=== PATIENT | female | born 1995 | race Two or more races ===

== ENCOUNTER 2021-07-28 10:17 | Emergency (ER) | payer MEDICAID, OTHER ==
[~2021-07-28] VITALS: Ht 154.9 cm; Wt 97.5 kg
[2021-07-28 10:17] VITALS: BP 124/76
== END 2021-07-28 13:13 | disposition home or self-care (01) ==
LOC: ER 10:17
DX: S51.812D Laceration without foreign body of left forearm, subsequent encounter (principal); J45.909 Unspecified asthma, uncomplicated; Z88.2 Allergy status to sulfonamides; X58.XXXD Exposure to other specified factors, subsequent encounter

== ENCOUNTER 2022-10-16 06:25 | Emergency (ER) | payer MEDICAID ==
[~2022-10-16] VITALS: Ht 157.5 cm; Wt 104.5 kg
[2022-10-16] MEDS ORDERED: EPINEPHrine HCL 1 MG/1 ML AMP SC ONE (06:45)
[2022-10-16] MEDS ORDERED: diphenhdrAMINE HCL 50 MG/1 ML VL IV ONE (06:45)
[2022-10-16] MEDS ORDERED: DexAMETHasone SOD PHOS 10MG/1ML VIAL INJ IV ONE (06:45)
[2022-10-16] MEDS ORDERED: ONDANSETRON HCL 4 MG/2 ML VIAL ONE (06:54)
[2022-10-16] MEDS ORDERED: ONDANSETRON HCL 4 MG/2 ML VIAL IV ONE (07:00)
[2022-10-16] MEDS ORDERED: PRED20TA2 PO (07:58)
[2022-10-16 08:23] VITALS: BP 121/66
== END 2022-10-16 08:25 | disposition home or self-care (01) ==
LOC: ER 06:25
DX: T78.1XXA Other adverse food reactions, not elsewhere classified, initial encounter (principal); J45.909 Unspecified asthma, uncomplicated; Z88.2 Allergy status to sulfonamides; X58.XXXA Exposure to other specified factors, initial encounter
CPT/HCPCS: 96372; 96374; 96375; 99284; J0171; J1100; J1200; J2405

== ENCOUNTER 2025-01-02 03:27 | Emergency (ER) | payer MEDICAID ==
[~2025-01-02] VITALS: Ht 154.9 cm; Wt 104.3 kg
[~2025-01-02 03:27] MED LIST: PRED20TA2 PO
[2025-01-02] MEDS ORDERED: ACET500T58 PO (04:09)
[2025-01-02] MEDS ORDERED: AMOX875T4 PO (04:09)
--- NOTE | 2025-01-02 04:09 | ED.PDOC ---
Eye-HPI HPI Comments 29-YEAR-OLD FEMALE PRESENTS TO ER WITH COMPLAINTS OF TOOTHACHE X2 DAYS. PATIENT REPORTS SHE HAS BEEN EXPERIENCING LEFT UPPER TOOTHACHE PAIN WITH ASSOCIATED PAIN TO SURROUNDING GUMS X2 DAYS. REPORTS THAT SHE HAS BEEN TAKING TYLENOL FOR HER PAIN WITH SLIGHT RELIEF. SHE RATES HER CURRENT LEFT UPPER TOOTHACHE PAIN AN 8/10 AND STATES SHE HAS NOT SEEN A DENTIST IN "SEVERAL YEARS". DENIES FEVER, FACIAL SWELLING/SKIN CHANGES, HEADACHE, JAW PAIN OR ANY FURTHER SYMPTOMS/COMPLAINTS Chief Complaint: Jaw Pain Time Seen by MD: 03:35 Primary Care Provider: UNKNOWN Reviewed Notes: Nurses Notes, Medications, Allergies Allergies: Uncoded Allergies: SULFA (Allergy, Severe, 07/28/21) Home Meds Active Scripts Amoxicillin & Pot Clavulanate (Amoxicillin/Potassium Cla) 875 Mg Tab, 1 TAB PO BID for 7 Days, #14 TAB 0 Refills Prov:LOU ROBBINS 01/02/25 Acetaminophen (Acetaminophen) 500 Mg Tab, 500 MG PO Q4HPRN, #30 TAB 0 Refills Prov:LOU ROBBINS 01/02/25 Prednisone (Prednisone) 20 Mg Tab, 50 MG PO DAILY for 5 Days, #5 MG Prov:ALVA GORDON MD 10/16/22 Information Source: Patient Mode of Arrival: Ambulatory Past Medical History PAST MEDICAL HISTORY: Anxiety, Asthma, Depression, HTN Past Medical History (Other): PTSD Surgical History (Other): GASTRIC SLEEVE RECONSTRUCTIVE SURGEON History: No Pertinent RECONSTRUCTIVE SURGEON History Family History Family History: Unknown, Family hx of heart reji Social History Smoker: Secondhand Alcohol: Denies ETOH Use Drugs: Marijuana Lives In: Home Constitutional: denies: chills, diaphoresis, fatigue, fever, malaise, sweats, weakness, others EENTM: reports: others ( STATED IN HPI) Respiratory: denies: cough, hemoptysis, orthopnea, SOB at rest, shortness of breath, SOB with excertion, stridor, wheezing, others Cardiovascular: denies: chest pain, dizzy spells, diaphoresis, Dyspnea on exertion, edema, irregular heart beat, left arm pain, lightheadedness, palpitations, PND, syncope, others Gastrointestinal: denies: abdomen distended, abdominal pain, blood streaked bowels, constipated, diarrhea, dysphagia, difficulty swallowing, hematemesis, melena, nausea, poor appetite, poor fluid intake, rectal bleeding, rectal pain, vomiting, others Genitourinary: denies: abnormal vagina bleeding, burning, dyspareunia, dysuria, flank pain, frequency, hematuria, incontinence, pain, , vagina discharge, urgency, others Neurological: denies: dizziness, fainting, headache, left sided numbness, left sided weakness, numbness, paresthesia, pre-existing deficit, right sided numbnes s, right sided weakness, seizure, speech problems, tingling, tremors, weakness, others Musculoskeletal: denies: back pain, gout, joint pain, joint swelling, muscle pain, muscle stiffness, neck pain, others Integumetry: denies: bruises, change in color, change in hair/nails, dryness, laceration, lesions, lumps, rash, wounds, others Allergic/Immunocompromised: denies: Difficulty Healing, Frequent Infections, Hives, Itching, others Hematologic/Lymphatic: denies: anemia, blood clots, easy bleeding, easy bruising, swollen glands, others Endocrine: denies: excessive hunger, excessive sweating, excessive thirst, excessive urination, flushing, intolerance to cold, intolerance to heat, unexplained weight gain, unexplained weight loss, others Psychiatric: denies: anxiety, bipolar disorder, depression, hopeless, panic disorder, schizophrenia, sleepless, suicidal, others Physical Exam General Appearance: No Apparent Distress, Obese HEENT: PERRL/EOMI, Pharynx Normal, TMs Normal, Other (MILD SWELLING/ERYTHEMA NOTED SURROUNDING GUMS OF LEFT UPPER MOLAR TEETH WITHOUT BLEEDING/DRAINAGE. OVERALL VERY POOR DENTAL HYGIENE APPRECIATED. NO FACIAL SWELLING/SKIN CHANGES NOTED) Neck: Full Range of Motion, Non-Tender, Normal Respiratory: Chest Non-Tender, Lungs Clear, No Accessory Muscle Use, No Respiratory Distress, Normal Breath Sounds Cardiovascular: No Murmur, No Gallop, Regular Rate/Rhythm Breast Exam: Deferred Gastrointestinal: NOT DONE Genitalia: Deferred Pelvic: Deferred Rectal: Deferred Extremities: Normal capillary refill, Normal range of motion Neurologic: Alert, area operations director II-XII nml as Tested, No Motor Deficits, Normal Affect, Normal Mood, No Sensory Deficits Cerebellar Function: Normal Reflexes: Normal Skin: Dry, Normal Color, Warm Lymphatic: No Adenopathy Was a procedure done? Was a procedure done?: No Sedation Sedation?: No EENT DIFF Eye: N/A Mouth: Herpes Simplex, Thrush, Other (DENTAL ABSCESS, HARJEET'S ANGINA) X-Ray, Labs, Meds, VS Vital Signs Date Time Temp Pulse Resp B/P (MAP) Pulse Ox O2 Delivery O2 Flow Rate FiO2 01/02/25 03:54 98.2 98 28 145/80 (101) 96 98.2 HURRICANE SPRAY ORDERED, PATIENT EDUCATED ON PROPER USE/DOSAGE CANNABIS CESSATION DISCUSSED AND ADVISED ADVISED TO FOLLOW UP WITH PCP AND DENTIST IN 1-2 DAYS PATIENT VERBALIZED UNDERSTANDING AND AGREEABLE WITH CURRENT PLAN OF CARE ADVISED TO RETURN TO ER IMMEDIATELY IF SYMPTOMS WORSEN Time of 1ST Reevaluation: 03:44 Reevaluation 1ST: N/A Patient Education/Counseling: Diagnosis, Treatment, Prognosis, Need For Follow Up Family Education/Counseling: No Family Present Departure 1 Departure Time of Disposition: 04:02 Impression: Primary Impression: Dental infection Disposition: 01 HOME / SELF CARE / HOMELESS Condition: Stable e-Prescriptions Amoxicillin & Pot Clavulanate (Amoxicillin/Potassium Cla) 875 Mg Tab 1 TAB PO BID for 7 Days, #14 TAB 0 Refills Prov: LOU ROBBINS 01/02/25 Acetaminophen (Acetaminophen) 500 Mg Tab 500 MG PO Q4HPRN, #30 TAB 0 Refills Prov: LOU ROBBINS 01/02/25 Discharged With: Self Critical Care Note Critical Care Time?: No Stability Stability form required: No Heart Score Heart Score: Heart Score Response (Comments) Value History N/A 0 EKG N/A 0 Age N/A 0 Risk Factors N/A 0 Troponin N/A 0 Total 0 LOU ROBBINS Jan 02, 2025 04:09
[2025-01-02] MEDS: BENZOCAINE (DENTAL) 20 % SPRAY 60ML MT ONE (04:12)
[2025-01-02 04:15] VITALS: PULSE 98; RESP 28; O2SAT 96
[2025-01-02 04:20] VITALS: BP 145/80; PULSE 98; RESP 28; TEMP 98.2; O2SAT 96
== END 2025-01-02 04:20 | disposition home or self-care (01) ==
LOC: ER 03:27
DX: K04.7 Periapical abscess without sinus (principal); I10 Essential (primary) hypertension; J45.909 Unspecified asthma, uncomplicated; Z79.52 Long term (current) use of systemic steroids; Z79.899 Other long term (current) drug therapy; Z88.2 Allergy status to sulfonamides

== ENCOUNTER 2025-07-02 18:48 | Emergency (ER) | payer MEDICAID ==
[~2025-07-02] VITALS: Ht 154.9 cm; Wt 100.3 kg
[~2025-07-02 18:48] MED LIST changes: +ACET500T58 PO; +AMOX875T4 PO
[2025-07-02] MEDS: ALBUTEROL SULF 2.5 MG/0.5ML(0.5%) NEB SOLN NEB STA (19:53)
--- NOTE | 2025-07-02 20:03 | DVH ---
CHEST RADIOGRAPH Indication: CP Technique: Single frontal view of the chest was obtained Comparison: None FINDINGS: Lines and Tubes: None Lungs: No focal consolidation. Pleura: No effusion. No pneumothorax. Cardiomediastinal contours: Unremarkable Bones: No acute osseous abnormality. IMPRESSION: No acute cardiopulmonary disease.
[2025-07-02 20:11] VITALS: BP 131/81; PULSE 86; RESP 15; TEMP 99.2; O2SAT 98
[2025-07-02] MEDS: FAMOTIDINE 20 MG TAB PO ONE (20:11)
--- NOTE | 2025-07-02 20:49 | ED.PDOC ---
HPI Allergic reaction HPI Comments 30-year-old female, with a history of peanut allergy, asthma, hypertension, hypothyroidism, and anemia, presents with chief complaint of throat itchiness and swelling. She reports onset of symptoms 15 minutes prior to arrival after eating a food item, that she suspects on having peanuts in it. Patient reports on taking 150 mg Benadryl tablet prior to coming to ED, with no immediate improvement to symptoms. Patient is still in the process of obtaining an EpiPen from her primary care physician states on being told on a possible anaphylactic shock if exposed to peanut allergen. Denial of any shortness of breath, rash, or further associated symptoms. REVIEW OF SYSTEMS: General: No fever, no chills, or fatigue HEENT: Throat swelling and itchiness. No earache. No congestion, no neck pain. Cardiac: No chest pain. No palpitations. Lungs: No shortness of breath, no cough. GI: No nausea, no vomiting, no diarrhea, no constipation, no abdominal pain : No dysuria, frequency, or urgency. No hematuria. Musculoskeletal: No joint pain , no joint swelling, no extremity edema. Skin: No rash, no itching. Neuro: No headache, no dizziness, no weakness PHYSICAL EXAM: General: Awake, alert and oriented. No acute distress. Skin: Skin in warm, dry and intact. Appropriate color for ethnicity. HEENT: The head is normocephalic and atraumatic. Conjunctivae are clear without exudates or hemorrhage. Sclera is non-icteric. EOM are intact. No signs of nystagmus. Eyelids are normal in appearance without swelling or lesions. Oral mucosa is pink and moist Neck: The neck is supple with normal range of motion. No JVD. Cardiac: Heart rate and rhythm are normal. No murmurs, gallops, or rubs are auscultated. Respiratory: Wheezing. No signs of respiratory distress. Lung sounds are clear in all lobes bilaterally without rales or rhonchi. Abdominal: Abdomen is soft, non-tender without distention, guarding or rigidity. Bowel sounds are present and normoactive in all four quadrants. Extremities: Upper and lower extremities are atraumatic in appearance without deformity or edema. Neurological: The patient is awake, alert and oriented to person, place, and time with normal speech. Speech is clear. There is no facial asymmetry. Chief Complaint: Allergic Reaction Time Seen by MD: 19:30 Primary Care Provider: UNKNOWN Reviewed Notes: Nurses Notes, Medications, Allergies Allergies: Uncoded Allergies: SULFA (Allergy, Severe, 07/28/21) Home Meds Active Scripts Amoxicillin & Pot Clavulanate (Amoxicillin/Potassium Cla) 875 Mg Tab, 1 TAB PO BID for 7 Days, #14 TAB 0 Refills Prov:LOU ROBBINS 01/02/25 Acetaminophen (Acetaminophen) 500 Mg Tab, 500 MG PO Q4HPRN, #30 TAB 0 Refills Prov:LOU ROBBINS 01/02/25 Prednisone (Prednisone) 20 Mg Tab, 50 MG PO DAILY for 5 Days, #5 MG Prov:ALVA GORDON MD 10/16/22 Information Source: Patient Mode of Arrival: Ambulatory Past Medical History PAST MEDICAL HISTORY: Anxiety, Asthma, Depression, HTN MEDICAL MANAGEMENT TRAINER History: No Pertinent MEDICAL MANAGEMENT TRAINER History Family History Family History: Unknown, Family hx of heart reji Social History Smoker: Secondhand Alcohol: Denies ETOH Use Drugs: Marijuana Lives In: Home Was a procedure done? Was a procedure done?: No Differential diagnosis (all) Differential Diagnosis: Anaphylaxis, Angioedema, Shock X-Ray, Labs, Meds, VS Vital Signs Date Time Temp Pulse Resp B/P (MAP) Pulse Ox O2 Delivery O2 Flow Rate FiO2 07/02/25 20:11 99.2 86 15 131/81 (98) 98 99.2 07/02/25 20:11 86 15 98 Room Air 07/02/25 19:54 18 97 Room Air* 0 21 07/02/25 18:49 99.2 96 18 124/88 94 99.2 Current Medications Medications (Trade) Dose Ordered Sig/Lewis Route Start Time Stop Time Status Last Admin Albuterol (Ventolin Medneb) 5 mg STAT STAT NEB 07/02/25 19:29 07/02/25 19:31 DC 07/02/25 19:53 Epinephrine HCl 0.3 mg STAT STAT IM 07/02/25 19:29 07/02/25 19:31 DC 07/02/25 20:11 Dexamethasone Sodium Phosphate (Decadron Injection) 10 mg ONCE STAT IM 07/02/25 19:29 07/02/25 19:31 DC 07/02/25 20:11 Famotidine (Pepcid Tablet) 40 mg ONCE ONCE PO 07/02/25 19:30 07/02/25 19:31 DC 07/02/25 20:11 [place] [id number] Ph: [phone] DIAGNOSTIC IMAGING Diagnostic Imaging Report : [id number] Signed PATIENT: JEET DEL VALLE ACCT: [id number] UNIT: [id number] : 1995 LOC: ER ROOM / BED: / AGE / SEX: 30 / F ADM STATUS: REG ER SERVICE 24 ORDERING PHYSICIAN: ROBERT MARTINEZ MD PROCEDURE(s): CXRP - CHEST PORTABLE REASON: CP ORDER NUMBER(s): [id number], ACCESSION NUMBER(s): [id number] CHEST RADIOGRAPH Indication: CP Technique: Single frontal view of the chest was obtained Comparison: None FINDINGS: Lines and Tubes: None Lungs: No focal consolidation. Pleura: No effusion. No pneumothorax. Cardiomediastinal contours: Unremarkable Bones: No acute osseous abnormality. IMPRESSION: No acute cardiopulmonary disease. ATED BY: EMMY VAZQUEZ DO DICTATED DATE/TIME: 07/02/252000 SIGNED BY: EMMY VAZQUEZ DO SIGNED DATE/TIME: 07/02/252000 CC: Time of 1ST Reevaluation: 20:00 Reevaluation 1ST: Unchanged Patient Education/Counseling: Treatment, Need For Follow Up Family Education/Counseling: No Family Present SEPSIS Sepsis Screen Date sepsis recognized/suspect: Jul 02, 2025 Time Sepsis recognized/suspect: 1848 Recent Procedure: No On Antibiotic Therapy: No Respiratory Rate >20: No Heart Rate >90: No Temp<36 C (96.8 F) or >38.3 C: No SBP <90 or MAP <65 mmHG: No New Acute Mental Status Change: No Is the patient on CPAP, BIPAP,: No Physician Orders Oxygen Per Hour (07/02/25 21:25) Activities Coordinator (07/02/25 21:25) Chest Portable (07/02/25 21:25) Vital Signs Date Time Temp Pulse Resp B/P (MAP) Pulse Ox O2 Delivery O2 Flow Rate FiO2 07/02/25 20:11 99.2 86 15 131/81 (98) 98 99.2 07/02/25 20:11 86 15 98 Room Air 07/02/25 19:54 18 97 Room Air* 0 21 07/02/25 18:49 99.2 96 18 124/88 94 99.2 Medications Medications Dose Ordered Sig/Lewis Route Start Time Stop Time Status Last Admin Dose Admin Albuterol 5 mg STAT STAT NEB 07/02/25 19:29 07/02/25 19:31 DC 07/02/25 19:53 Dexamethasone Sodium Phosphate 10 mg ONCE STAT IM 07/02/25 19:29 07/02/25 19:31 DC 07/02/25 20:11 Epinephrine HCl 0.3 mg STAT STAT IM 07/02/25 19:29 07/02/25 19:31 DC 07/02/25 20:11 Famotidine 40 mg ONCE ONCE PO 07/02/25 19:30 07/02/25 19:31 DC 07/02/25 20:11 Departure 1 Departure Time of Disposition: 05:01 Impression: Primary Impression: Allergic reaction to peanut Additional Impression: Eloped from emergency department Disposition: 01 HOME / SELF CARE / HOMELESS Condition: Stable Comments Patient was seen and evaluated in the emergency department. She eloped from the emergency department prior to re-evaluation. Critical Care Note Critical Care Time?: No Stability Stability form required: No Heart Score Heart Score: Heart Score Response (Comments) Value History N/A 0 EKG N/A 0 Age N/A 0 Risk Factors N/A 0 Troponin N/A 0 Total 0 I personally scribed for ROBERT MARTINEZ MD ([email or web address]) on 07/02/25 at 20:49. Electronically submitted by Sukumar Holm ([email or web address]). I personally scribed for ROBERT MARTINEZ MD ([email or web address]) on 07/02/25 at 21:07. Electronically submitted by Sukumar Holm ([email or web address]). ROBERT MARTINEZ MD Jul 02, 2025 20:49
== END 2025-07-03 01:03 | disposition left against medical advice (07) ==
LOC: ER 18:49
DX: T78.1XXA Other adverse food reactions, not elsewhere classified, initial encounter (principal); F12.90 Cannabis use, unspecified, uncomplicated; F41.9 Anxiety disorder, unspecified; J45.909 Unspecified asthma, uncomplicated; F32.A Depression, unspecified; I10 Essential (primary) hypertension; F17.200 Nicotine dependence, unspecified, uncomplicated; Z91.010 Allergy to peanuts; Z88.2 Allergy status to sulfonamides; Z79.52 Long term (current) use of systemic steroids; Z79.899 Other long term (current) drug therapy; X58.XXXA Exposure to other specified factors, initial encounter
CPT/HCPCS: 71045; 94640; 96372; 99284; J0169; J1100